=== PATIENT | male | born 1990 | race Caucasian/White ===

== ENCOUNTER 2020-10-28 03:03 | Emergency (ER) | payer OTHER, SELFPAY ==
[2020-10-28] MEDS ORDERED: Ondansetron ODT 4 MG TAB ONE (03:41)
[2020-10-28 15:36] LABS: SARS-CoV-2 PCR by NAA Not Detected (NotDetected)
== END 2020-10-28 04:14 | disposition home or self-care (01) ==
LOC: BURERS 03:03
DX: R50.9 Fever, unspecified (principal); Z20.822 Contact with and (suspected) exposure to COVID-19; F17.220 Nicotine dependence, chewing tobacco, uncomplicated
CPT/HCPCS: 99283; Q0162; U0003; U0005

== ENCOUNTER 2022-03-06 18:19 | Emergency (ER) | payer OTHER ==
[2022-03-06] MEDS ORDERED: Ondansetron ODT 4 MG TAB ONE (19:22)
[2022-03-06] MEDS ORDERED: Dexamethasone 4 MG TAB ONE (19:22)
[2022-03-06] MEDS ORDERED: Acetaminophen 500 MG TAB ONE (20:27)
== END 2022-03-06 20:22 | disposition home or self-care (01) ==
LOC: BURERS 18:19
DX: J10.1 Influenza due to other identified influenza virus with other respiratory manifestations (principal); F17.220 Nicotine dependence, chewing tobacco, uncomplicated
CPT/HCPCS: 87081; 87430; 87804; 99283; J8540; Q0162